=== PATIENT | male | born 1970 ===

== ENCOUNTER 2020-02-09 20:34 | Emergency (ER) | payer MEDICAID ==
[~2020-02-09] VITALS: Ht 180.3 cm; Wt 72.8 kg
[2020-02-09 20:38] VITALS: BP 122/80
--- NOTE | 2020-02-09 20:51 | NUR ---
patient decided to leave after triage. no active bleeding on his nose.
== END 2020-02-09 20:54 | disposition left against medical advice (07) ==
LOC: ED 20:48
DX: R04.0 Epistaxis (principal); Z53.21 Procedure and treatment not carried out due to patient leaving prior to being seen by health care provider